=== PATIENT | male | born 1950 | race Caucasian/White ===

== ENCOUNTER 2018-10-08 08:00 | Day surgery (SDC) | payer OTHER ==
[~2018-10-08] VITALS: Ht 177.8 cm; Wt 127.0 kg
[~2018-10-08 08:00] MED LIST: AMBIEN CR12.5 MG PO; AMITRIPTYLINE H10 MG PO; AMLODIPINE BESY10 MG PO; ASCORBIC ACID500 M3 PO; ASPIRIN EC81 MG PO; AZITHROMYCIN250 MG PO; B-12500 MCG PO; BUPROPION XL150 MG PO; BUSPIRONE HCL10 MG PO; COMBIVENT RESPIM4 GM INH; CYCLOBENZAPRINE10 MG PO; GABAPENTIN300 MG PO; GLUCOSAMINE HC500 MG PO; LISINOPRIL40 MG PO; MEDROL4 M1 PO; METOPROLOL TART50 MG PO; MULTI VITAMIN1 EACH PO; NAPROXEN500 MG PO; NORCO 5-325 TA1 EACH PO; OMEPRAZOLE20 MG PO; PREDNISONE20 MG PO; TERAZOSIN HCL10 MG PO; TRAZODONE HCL150 MG PO; VENTOLIN HFA18 GM IH; VIAGRA100 MG PO; VITAMIN D1000 UNI1 PO; VITAMIN E400 UNI6 PO; ZITHROMAX250 MG PO; [UNRECOGNIZED DRUG - CODE] DT
--- NOTE | 2018-10-08 10:30 | NUR ---
10[facility]08/18 [facility]30 [facility] NON RESPONSIVE TO VERBAL/TACTILE STIMULI. ORAL AND NASAL AIRWAY IN MOUTH. JAW THRUST HELD BY RN TO KEEP AIRWAY OPEN. PT WITH JUICY SECRETIONS AND ORALLY SUCTIONED. 0957 PT AWAKENS. ORAL AND NASAL AIRWAY REMOVED. PT COUGHING AND SUCTIONED BY RN. AUDIBLE WHEEZES NOTED. BILAT UPPER AND LOWER LOBES HAVE EXPIRATORY WHEEZES. NEW ORDERS RECEIVED. 0959 ALBUTEROL UNIT DOSE NEB GIVEN. 1005 OXYGEN REMOVED. ENCOURAGED TO COUGH AND DEEP BREATH. PASSING FLATUS. 1020 SITTING UP IN BED TAKING SIPS OF WATER.
--- NOTE | 2018-10-09 08:24 | OR ---
[facility] [address], [place] [address] Signed DATE OF OPERATION: 10/08/2018 SURGEON: Geo Castrejon MD PREOPERATIVE DIAGNOSES: 1. Change in bowel habits with loose stool and diarrhea. 2. Possible history of colonic polyps in his 50s. POSTOPERATIVE DIAGNOSES: 1. Moderate pandiverticulosis. 2. Possible melanosis coli. PROCEDURE PERFORMED: Colonoscopy with cold biopsies in the mid to distal sigmoid colon x2 and at 10 cm in the rectum. ESTIMATED BLOOD LOSS: None. INDICATIONS: Shimon is a 68-year-old gentleman who was asked to see us for a colonoscopy. He has had a change in bowel habits with frequent loose stool and diarrhea. He has been through stool studies and labs, and according to him, they were all negative. He gives no family history of colon cancer or polyps. He is pretty certain that he had colonic polyps back in his 50s. He told me that was his last colonoscopy. In the office, I gave him a pamphlet on colonoscopy. We looked at that together along with the risks including, but not limited to gas bloating, crampy abdominal pain, bleeding, perforation, requiring surgery, and missed diagnosis. In addition, he has significant medical issues and he is heavy with a full face and very thick neck. Consequently, we asked an anesthesia provider to help us with increased monitoring of sedation with propofol. That indeed proved to be a blair decision. Although he takes 4 antihypertensive drugs, he came in with systolic blood pressures up into the 230 range. Consequently, the anesthesia provider gave him some Lopressor during the procedure and brought his blood pressures down to the 180s. He may want review his blood pressure medications and compliance with his primary care provider. PROCEDURE NOTE: Shimon was taken into our endoscopy suite and placed in the left lateral decubitus position. He was given IV sedation with propofol per our nurse avian keeper. Again, his systolic blood pressures were running up in the 230 range. He told us on admission that Electronically Signed By: GEO CASTREJON MD 10/09/18 0824 PATIENT NAME: SHIMON QUIROS OPERATIVE REPORT DATE OF : 48 REPORT #: [id number] PHYSICIAN: GEO CASTREJON MD PCP: RUTHANN COYLE MD REPORT IS CONFIDENTIAL AND NOT TO BE RELEASED WITHOUT AUTHORIZATION [facility] [address] [place], [place] [address] Signed he had taken all his blood pressure pills yesterday evening and this morning. Our anesthesia provider gave him some Lopressor IV and it brought his systolic blood pressures down into the 180s. A digital rectal exam was performed and this was unremarkable. The adult colonoscope was introduced and advanced all around into the cecum under direct visualization of camera without difficulty. Fortunately, he is quite easy to scope. His prep was good. The ileocecal valve and appendiceal orifice were E and Crohn's foot were easily visualized. The scope was slowly withdrawn. He has moderate pandiverticulosis. We saw no polyps throughout the entire colon. He does have some mild tiger striping in the colon and seemed to be more prominent in the rectum. We went ahead and took two cold biopsies of mid to distal sigmoid colon for pathologic review and then one at about 10 cm in the rectum for pathologic review. The scope had been retroflexed and he had very minimal internal hemorrhoid tissue. After this, the gas was suctioned out and colonoscope removed. Shimon tolerated the procedure quite well. RECOMMENDATIONS: I will see Shimon back in my office in 7 to 14 days to review his results. He might review his hypertension and his antihypertensive medications with his primary care provider based on the above. Geo Castrejon MD [facility]/MODL /[id number] cc: MD Geo Pool MD [facility] Copies: RUTHANN COYLE MD Electronically Signed By: GEO CASTREJON MD 10/09/18 0824 PATIENT NAME: SHIMON QUIROS OPERATIVE REPORT DATE OF : 48 REPORT #: [id number] PHYSICIAN: GEO CASTREJON MD PCP: RUTHANN COYLE MD REPORT IS CONFIDENTIAL AND NOT TO BE RELEASED WITHOUT AUTHORIZATION [address] [address] Signed GEO CASTREJON MD ~ Electronically Signed By: GEO CASTREJON MD 10/09/18 0824 PATIENT NAME: HSIMON QUIROS OPERATIVE REPORT DATE OF : 48 REPORT #: [id number] PHYSICIAN: GEO CASTREJON MD PCP: RUTHANN COYLE MD REPORT IS CONFIDENTIAL AND NOT TO BE RELEASED WITHOUT AUTHORIZATION
== END 2018-10-08 10:50 | disposition home or self-care (01) ==
LOC: DS 08:00 → OPS 08:00
PROVIDERS: Colon & Rectal Surgery
PROC: 0DBP8ZX Excision of Rectum, Via Natural or Artificial Opening Endoscopic, Diagnostic (ICD-10-PCS; 2018-10-08)
PROC: 0DBE8ZX Excision of Large Intestine, Via Natural or Artificial Opening Endoscopic, Diagnostic (ICD-10-PCS; principal; 2018-10-08 09:00)
DX: K52.9 Noninfective gastroenteritis and colitis, unspecified (principal); K57.30 Diverticulosis of large intestine without perforation or abscess without bleeding; K62.89 Other specified diseases of anus and rectum; I10 Essential (primary) hypertension; J44.9 Chronic obstructive pulmonary disease, unspecified; E66.9 Obesity, unspecified; K74.60 Unspecified cirrhosis of liver; E66.01 Morbid (severe) obesity due to excess calories; F41.9 Anxiety disorder, unspecified; K21.9 Gastro-esophageal reflux disease without esophagitis; G47.33 Obstructive sleep apnea (adult) (pediatric); F12.90 Cannabis use, unspecified, uncomplicated; Z88.8 Allergy status to other drugs, medicaments and biological substances; Z68.39 Body mass index [BMI] 39.0-39.9, adult; Z79.82 Long term (current) use of aspirin; Z79.899 Other long term (current) drug therapy; Z87.891 Personal history of nicotine dependence
CPT/HCPCS: J2250; J2704; J7120

== ENCOUNTER 2018-10-20 12:06 | Emergency (ER) | payer OTHER ==
[~2018-10-20] VITALS: Ht 177.8 cm; Wt 127.0 kg
--- OUTSIDE RECORDS SUMMARY | ~2018-10-20 | XMS | Clinical Summary ---
Demographics + + + | Address | [address] | | | [place] [address] | + + + | Home Phone | | + + + | Preferred Language | Unknown | + + + | Marital Status | | + + + | Rastafari Affiliation | 1069 | + + + | Race | Unknown | + + + | Ethnic Group | Unknown | + + + Author + + + | Author | [facility] | | | and Zhengana | + + + | Organization | [facility] | | | and [place] | + + + | Address | Unknown | + + + | Phone | Unavailable | + + + Support + + +---------+ + | Name | Relationship | Address | Phone | + + +---------+ + | Ladan Gtz | ECON | Unknown | | + + +---------+ + Care Team Providers + +------+ + | Care Line Ordering Clinician Name | Role | Phone | + +------+ + | Steve Hodge MD | PP | | + +------+ + Allergies + + + + + + | Active Allergy | Reactions | Severity | Noted | Comments | | | | | Date | | + + + + + + | Niacin And Related | Other (See Comments) | | 08/16/19 | Reaction not | | | | | 18 | specified in outside | | | | | | medical records | + + + + + + Medications + + + +---------+------+------+-------+ | Medication | Sig | Dispensed | Refills | Star | End | Statu | | | | | | t | Date | s | | | | | | Date | | | + + + +---------+------+------+-------+ | | Inhale 1 puff into | | 0 | | | Activ | | albuterol-ipratropiu | the lungs every 6 | | | | | e | | m (COMBIVENT | hours as needed for | | | | | | | RESPIMAT) 100-20 | Shortness of Breath. | | | | | | | mcg/puff inhaler | | | | | | | + + + +---------+------+------+-------+ | | Take 1 tablet by | | 0 | | | Activ | | HYDROcodone-acetamin | mouth Twice daily | | | | | e | | ophen (NORCO) 5-325 | as needed for Pain. | | | | | | | mg per tablet | | | | | | | + + + +---------+------+------+-------+ | amoxicillin | Take 500 mg by mouth | | 0 | | | Activ | | (AMOXIL) 500 MG | 3 times daily. | | | | | e | | capsule | | | | | | | + + + +---------+------+------+-------+ | ibuprofen | Take 600 mg by mouth | | 0 | | | Activ | | (ADVIL,MOTRIN) 600 | every 6 hours as | | | | | e | | MG tablet | needed for Pain. | | | | | | + + + +---------+------+------+-------+ | gabapentin | Take 300 mg by mouth | | 0 | | | Activ | | (NEURONTIN) 300 mg | nightly. | | | | | e | | capsule | | | | | | | + + + +---------+------+------+-------+ | valsartan (DIOVAN) | Take 320 mg by mouth | | 0 | | | Activ | | 320 MG tablet | Daily. | | | | | e | + + + +---------+------+------+-------+ | cloNIDine | Take 0.1 mg by mouth | | 0 | | | Activ | | (CATAPRES) 0.1 mg | 3 times daily. | | | | | e | | tablet | | | | | | | + + + +---------+------+------+-------+ | latanoprost | Place 1 drop into | | 0 | | | Activ | | (XALATAN) 0.005% | both eyes nightly. | | | | | e | | ophthalmic solution | | | | | | | + + + +---------+------+------+-------+ | metoprolol | Take 25 mg by mouth | | 0 | | | Activ | | tartrate (LOPRESSOR) | nightly. | | | | | e | | 50 mg tablet | | | | | | | + + + +---------+------+------+-------+ | | Take 25 mg by mouth | | 0 | | | Activ | | hydroCHLOROthiazide | Daily. | | | | | e | | 25 mg tablet | | | | | | | + + + +---------+------+------+-------+ | omeprazole | Take 20 mg by mouth | | 0 | | | Activ | | (PRILOSEC) 20 mg | every morning | | | | | e | | capsule | (before breakfast). | | | | | | + + + +---------+------+------+-------+ | cyclobenzaprine | Take 10 mg by mouth | | 0 | | | Activ | | (FLEXERIL) 10 mg | Twice daily as | | | | | e | | tablet | needed for Muscle | | | | | | | | spasms. Do not take | | | | | | | | with Clonazepam | | | | | | + + + +---------+------+------+-------+ | amLODIPine | Take 10 mg by mouth | | 0 | | | Activ | | (NORVASC) 10 MG | Daily. | | | | | e | | tablet | | | | | | | + + + +---------+------+------+-------+ | amitriptyline | Take 300 mg by mouth | | 0 | | | Activ | | (ELAVIL) 150 MG | nightly. | | | | | e | | tablet | | | | | | | + + + +---------+------+------+-------+ | sildenafil | Take 100 mg by mouth | | 0 | | | Activ | | (VIAGRA) 100 MG | as needed for | | | | | e | | tablet | Erectile | | | | | | | | Dysfunction. | | | | | | + + + +---------+------+------+-------+ | naloxone (NARCAN) | 4 mg by Nasal route | | 0 | | | Activ | | 4 mg/nasal spray | as needed | | | | | e | | | (Accidental Opioid | | | | | | | | Overdose). May | | | | | | | | repeat in other | | | | | | | | nostril in 3-5 | | | | | | | | minutes if needed, | | | | | | | | Call 911 | | | | | | + + + +---------+------+------+-------+ | artificial tears | Place 1 drop into | | 0 | | | Activ | | (REFRESH TEARS) | both eyes every 6 | | | | | e | | ophthalmic solution | hours as needed for | | | | | | | | Dry Eyes. | | | | | | + + + +---------+------+------+-------+ | busPIRone (BUSPAR) | Take 10 mg by mouth | | 0 | | | Activ | | 10 MG tablet | 2 times daily. | | | | | e | + + + +---------+------+------+-------+ | traZODone | Take 300 mg by mouth | | 0 | | | Activ | | (DESYREL) 150 MG | nightly. | | | | | e | | tablet | | | | | | | + + + +---------+------+------+-------+ | amitriptyline | Take 40 mg by mouth | | 0 | | | Activ | | (ELAVIL) 10 mg | nightly. | | | | | e | | tablet | | | | | | | + + + +---------+------+------+-------+ | SODIUM FLUORIDE, | Place 1 Application | | 0 | | | Activ | | DENTAL GEL, 1.1 % | onto teeth 2 times | | | | | e | | CREA | daily. | | | | | | + + + +---------+------+------+-------+ | aspirin 81 mg EC | Take 81 mg by mouth | | 0 | | | Activ | | tablet | Daily. | | | | | e | + + + +---------+------+------+-------+ | naproxen | Take 500 mg by mouth | | 0 | | | Activ | | (NAPROSYN) 500 mg | 2 times daily (with | | | | | e | | tablet | breakfast & | | | | | | | | dinner). | | | | | | + + + +---------+------+------+-------+ | cholecalciferol | Take 1,000 Units by | | 0 | | | Activ | | (VITAMIN D-3) 1000 | mouth Daily. | | | | | e | | units TABS | | | | | | | + + + +---------+------+------+-------+ | cyanocobalamin | Take 500 mcg by | | 0 | | | Activ | | (VITAMIN B-12) 500 | mouth Daily. | | | | | e | | mcg tablet | | | | | | | + + + +---------+------+------+-------+ | Multiple Vitamin | Take by mouth | | 0 | | | Activ | | (THERAGRAN PO) | Daily. | | | | | e | + + + +---------+------+------+-------+ | Glucosamine HCl | Take by mouth | | 0 | | | Activ | | (GLUCOSAMINE PO) | Daily. | | | | | e | + + + +---------+------+------+-------+ Active Problems Not on file Social History + + + +--------+ + | Tobacco Use | Types | Packs/Day | Years | Date | | | | | Used | | + + + +--------+ + | Former Smoker | Cigarettes | 2 | 15 | Started: 08/21/1997 | + + + +--------+ + + +---+---+---+ | Smokeless Tobacco: | | | | | Never Used | | | | + +---+---+---+ + + +---------+ + | Alcohol Use | Drinks/We | oz/Week | Comments | | | ek | | | + + +---------+ + | Yes | | | Social | + + +---------+ + + + + | Sex Assigned at | Date Recorded | | | | + + + | Not on file | | + + + + + + + | Job Start Date | Occupation | Industry | + + + + | Not on file | Not on file | Not on file | + + + + + + + + | Travel History | Travel Start | Travel End | + + + + + + | No recent travel history available. | + + Last Filed Vital Signs + + + + | Vital Sign | Reading | Time Taken | + + + + | Blood Pressure | 148/84 | 08/22/20171241 PDT | + + + + | Pulse | 60 | 08/22/20171241 PDT | + + + + | Temperature | - | - | + + + + | Respiratory Rate | - | - | + + + + | Oxygen Saturation | - | - | + + + + | Inhaled Oxygen | - | - | | Concentration | | | + + + + | Weight | 128 kg (282 lb 3 oz) | 08/22/20171241 PDT | + + + + | Height | 177.8 cm (5' 10") | 08/22/20171241 PDT | + + + + | Body Mass Index | 40.49 | 08/22/20171241 PDT | + + + + Plan of Treatment + + + + + | Health Maintenance | Due Date | Last Done | Comments | + + + + + | Hepatitis C | | | | | Screening | 9 | | | + + + + + | Vaccine: | | | | | Dtap/Tdap/Td (1 - | 8 | | | | Tdap) | | | | + + + + + | Colorectal Cancer | | | | | Screening | 9 | | | | (Colonoscopy) | | | | + + + + + | Vaccine: Zoster (1 | | | | | of 2) | 9 | | | + + + + + | Vaccine: | | | | | Pneumococcal 65+ | 4 | | | | Low/Medium Risk (1 | | | | | of 2 - PCV13) | | | | + + + + + | Adult Annual | | | | | Wellness Visit | 5 | | | + + + + + | Vaccine: Influenza | | | | | (Season Ended) | 9 | | | + + + + + | AAA Screening | Completed | 11/03/2014 | | + + + + + Results Not on filefrom Last 3 Months Insurance + +--------+ +--------+-------+---------+--------+ | Payer | Benefi | Subscriber | Effect | Phone | Address | Type | | | t Plan | ID | nieves | | | | | | / | | Dates | | | | | | Group | | | | | | + +--------+ +--------+-------+---------+--------+ | [employer]ER[employer] ADMIN | VETERA | [id number] | | | | Indemn | | | [place] | | 018-Pr | | | ity | | | CHOICE | | esent | | | | + +--------+ +--------+-------+---------+--------+ + +--------+ +--------+ + + | Guarantor Name | Accoun | Relation to | Date | Phone | Billing Address | | | t Type | Patient | of | | | | | | | | | | + +--------+ +--------+ + + | Shimon Gtz | Person | Self | [birth year] | [address] | | Baljinder | nilda/Phill | | 1950 | [phone] | [place] [address] | | | marylou | | | 3 (Home) | | + +--------+ +--------+ + + Advance Directives Patient has advance care planning documents on file. For more information, please contact:[facility] [place] [address]
--- OUTSIDE RECORDS SUMMARY | ~2018-10-20 | XMS | Clinical Summary ---
Demographics + + + | Address | [address] | | | [place] [address] | + + + | Home Phone | | + + + | Preferred Language | Unknown | + + + | Marital Status | Unknown | + + + | Synagogue Affiliation | Unknown | + + + | Race | Unknown | + + + | Ethnic Group | Unknown | + + + Author + + + | Author | [facility] | + + + | Organization | [facility] | + + + | Address | Unknown | + + + | Phone | Unavailable | + + + Support + + + + + | Name | Relationship | Address | Phone | + + + + + | Charline Kirby | ECON | [address] | | | | | [place] [address] | | + + + + + | Apryl Quiros | ECON | Unknown | | + + + + + Care Team Providers + +------+ + | Care Molding Line Assistant Name | Role | Phone | + +------+ + | Les Yanez MD | PP | | + +------+ + Allergies Not on File Current Medications Not on file Active Problems Not on file Social History + +-------+ +--------+------+ | Tobacco Use | Types | Packs/Day | Years | Date | | | | | Used | | + +-------+ +--------+------+ | Never Assessed | | | | | + +-------+ +--------+------+ + + + | Sex Assigned at | Date Recorded | | | | + + + | Not on file | | + + + Plan of Treatment + [...] filefrom Last 3 Months Insurance + +--------+ +------+ + + | Payer | Benefi | Subscriber | Type | Phone | Address | | | t Plan | ID | | | | | | / | | | | | | | Group | | | | | + +--------+ +------+ + + | MEDICARE | MEDICA | [id number] | | | [address] | | | RE | | | | [place] [address] | | | IP-OP | | | | | + +--------+ +------+ + + | VETERANS | VETERA | [id number] | | [phone] [employer]EE SERVICES [id number] | | ADMINISTRATION | [place] | | | [phone] | | | [address] | | | | [address] | | | [place] | | | | [phone] | | | ON | | | | | | | GENERI | | | | | | | C | | | | | + +--------+ +------+ + + + +--------+ +--------+ + + | Guarantor Name | Accoun | Relation to | Date | Phone | Billing Address | | | t Type | Patient | of | | | | | | | | | | + +--------+ +--------+ + + | SHIMON QUIROS | Person | Self | [birth year] | Home: | [address] | | | al/Fam | | 9 | +- | [place] [address] | | | marylou | | | [phone] | | + +--------+ +--------+ + + | SHIMON QUIROS | Vetera | Self | [birth year] | Home: | [address] | | | ns | | 1950 | +- | [place] [address] | | | Admini | | | [address] | | | | shima | | | | | | | on | | | | | + +--------+ +--------+ + +"
--- OUTSIDE RECORDS SUMMARY | ~2018-10-20 | XMS | Clinical Summary ---
Demographics + + + | Address | [address] | | | [place] [address] | + + + | Home Phone | | + + + | Preferred Language | Unknown | + + + | Marital Status | | + + + | Sikhism Affiliation | 1069 | + + + | Race | Unknown | + + + | Ethnic Group | Unknown | + + + Author + + + | Author | [facility] | | | and Zhengana | + + + | Organization | [facility] | | | and [place]a | [...] Team Providers + +------+ + | Care Electro Mechanical Engineer Name | Role | Phone | + [...] +--------+-------+---------+--------+ | [employer]ETER[employer] ADMIN | VETERA | [id number] | | | | Indemn | | [...] | 1950 | [phone] | [place] [address] | | | marylou | | | 3 (Home) | | + +--------+ +--------+ + + Advance Directives Patient has advance care planning documents on file. For more information, please contact:[facility] [place] [address]
--- OUTSIDE RECORDS SUMMARY | ~2018-10-20 | XMS | Clinical Summary ---
Demographics + + + | Address | [address] | | | [place] [address] | + + + | Home Phone | | + + + | Preferred Language | Unknown | + + + | Marital Status | Unknown | + + + | Buddhist Affiliation | Unknown | + + + | Race | Unknown | + + + | Ethnic Group | Unknown | + + + Author + + + | Author | [facility] | + + + | Organization | [facility] | + + + | Address | Unknown | + + + | Phone | Unavailable | + + + Support + + + + + | Name | Relationship | Address | Phone | + + + + + | Charline Kirby | ECON | [address] | | | | | [place] [address] | | + + + + + | Apryl Quiros | ECON | Unknown | | + + + + + Care Team Providers + +------+ + | Care Dentistry Professor Name | Role | Phone | + [...] + + | MEDICARE | MEDICA | [id number] | | | [address] | | | RE | | | | [place] [address] | | | IP-OP | | | | | + +--------+ +------+ + + | VETERANS | VETERA | [id number] | | [phone] | FEE SERVICES [address] | | ADMINISTRATION | [place] | | | [phone] | [phone] | | | ADMINI | | | | [address] | | | [place] | | | | [phone] | | | ON | | | [...] | 9 | +- | [place] [address] | | | [place] | | | [address] | | + +--------+ +--------+ + + | SHIMON QUIROS | Vetera | Self | [birth year] | Home: | [address] | | | ns | | 1950 | +- | [place] [address] | | | Admini | | | [address] | | | | shima | | | | | | | on | | | | | + +--------+ +--------+ + +"
[2018-10-20] MEDS ORDERED: DOXYCYCLINE HY100 MG PO (14:23)
[2018-10-20] MEDS ORDERED: PREDNISONE20 MG PO (14:23)
== END 2018-10-20 14:34 | disposition home or self-care (01) ==
LOC: ED 12:06
DX: J44.1 Chronic obstructive pulmonary disease with (acute) exacerbation (principal); I10 Essential (primary) hypertension; Z85.46 Personal history of malignant neoplasm of prostate; Z87.891 Personal history of nicotine dependence; Z88.1 Allergy status to other antibiotic agents; Z79.82 Long term (current) use of aspirin; Z79.899 Other long term (current) drug therapy
CPT/HCPCS: 71046; 80053; 83735; 84484; 85025; 94640; 96374; 99283-25; J2930

== ENCOUNTER 2020-03-07 08:37 | Inpatient (IN) | payer MEDICARE, OTHER | END 2020-03-11 13:30 | disposition home or self-care (01) | DRG 177 | LOC: ED 08:37 → CCU 12:35 → MS 03-08 14:59 | PROVIDERS: ADMIT Student in an Organized Health Care Education/Training Program | DX: J15.6 Pneumonia due to other Gram-negative bacteria (principal); J96.01 Acute respiratory failure with hypoxia; J44.1 Chronic obstructive pulmonary disease with (acute) exacerbation; J44.0 Chronic obstructive pulmonary disease with (acute) lower respiratory infection; Z20.828 Contact with and (suspected) exposure to other viral communicable diseases; B19.20 Unspecified viral hepatitis C without hepatic coma; I10 Essential (primary) hypertension; M54.9 Dorsalgia, unspecified; G89.29 Other chronic pain; K21.9 Gastro-esophageal reflux disease without esophagitis; F39 Unspecified mood [affective] disorder; Z85.46 Personal history of malignant neoplasm of prostate; Z87.891 Personal history of nicotine dependence; Z88.8 Allergy status to other drugs, medicaments and biological substances; Z79.1 Long term (current) use of non-steroidal anti-inflammatories (NSAID); Z79.82 Long term (current) use of aspirin; Z79.891 Long term (current) use of opiate analgesic; Z79.899 Other long term (current) drug therapy ==

== ENCOUNTER 2021-01-05 17:46 | Emergency (ER) | payer OTHER ==
[~2021-01-05] VITALS: Ht 177.8 cm; Wt 111.1 kg
[~2021-01-05 17:46] MED LIST changes: +ALBUTEROL2.5 MG/3 M INH; +BIOTENE ORALBAL42 G1 MM; +CATAPRES0.1 MG PO; +COZAAR100 MG PO; +CVS PAIN RELIE TOP; +DENTA 5000 PLUS51 GM MM; +DOXYCYCLINE HY100 MG PO; +DRY MOUTH45 ML MM; +GLUCOSAMINE1000 MG PO; +HYDROCHLOROTHIA25 MG PO; +HYDROCODON-ACE1 EA10 PO; +LATANOPROST 0.7.5 ML OU; +LEVOFLOXACIN750 MG PO; +MELATONIN5 M2 PO; +NEURONTIN300 MG PO; +STIOLTO RESPIMAT4 GM INH; +THEREMS-M1 EACH PO; +VITAMIN B-121000 MCG PO; +VITAMIN C1500 MG PO; +VITAMIN D350 MC3 PO; +VITAMIN E100 UNI1 PO; -[UNRECOGNIZED DRUG - CODE] DT
--- NOTE | 2021-01-10 07:09 | EKG ---
[facility] [address] [facility] [place] [address] Signed Sinus tachycardia with premature supraventricular complexes and with occasional premature ventricular complexes Otherwise normal ECG Confirmed by GET AYERS MD ([id number]) on 01/10/2021 7:09:33 AM Electronically Signed By: GET AYERS MD 01/10/2109 PATIENT NAME: VIVIANE QUIROS Electrocardiogram DATE OF : 48 PHYSICIAN: GET AYERS MD REPORT #: [id number] REPORT IS CONFIDENTIAL AND NOT TO BE RELEASED WITHOUT AUTHORIZATION
== END 2021-01-05 21:00 | disposition home or self-care (01) ==
LOC: ED 17:46
DX: J44.1 Chronic obstructive pulmonary disease with (acute) exacerbation (principal); I10 Essential (primary) hypertension; Z85.46 Personal history of malignant neoplasm of prostate; Z87.891 Personal history of nicotine dependence; Z88.1 Allergy status to other antibiotic agents; Z20.822 Contact with and (suspected) exposure to COVID-19; Z79.899 Other long term (current) drug therapy; Z79.52 Long term (current) use of systemic steroids; Z79.82 Long term (current) use of aspirin
CPT/HCPCS: 71045; 80053; 83605; 84484; 85025; 87040; 94640; 96374; 99285-25; J1100; U0003

== ENCOUNTER 2021-11-28 13:11 | Emergency (ER) | payer OTHER ==
[~2021-11-28] VITALS: Ht 177.8 cm; Wt 95.2 kg
== END 2021-11-28 14:24 | disposition home or self-care (01) ==
LOC: ED 13:11
DX: S80.12XA Contusion of left lower leg, initial encounter (principal); W06.XXXA Fall from bed, initial encounter; I10 Essential (primary) hypertension; Z87.891 Personal history of nicotine dependence; Z88.1 Allergy status to other antibiotic agents; Z79.899 Other long term (current) drug therapy
CPT/HCPCS: 99283

== ENCOUNTER 2022-03-27 14:14 | Emergency (ER) | payer OTHER ==
[~2022-03-27] VITALS: Ht 177.8 cm; Wt 95.2 kg
--- NOTE | 2022-03-27 16:50 | EKG ---
[facility] [address] [facility] [place] [address] Signed Sinus bradycardia T wave abnormality, consider lateral ischemia Abnormal ECG When compared with ECG of 05-JAN-2021 18:37, premature ventricular complexes are no longer present premature supraventricular complexes are no longer present Vent. rate has decreased BY 56 BPM T wave inversion now evident in Lateral leads Confirmed by MANUEL LOPEZ MD ([id number]) on 03/27/2022 4:50:12 PM Electronically Signed By: MANUEL LOPEZ MD 03/27/22 1650 PATIENT NAME: VIVIANE QUIROS Electrocardiogram DATE OF : [birth year] PHYSICIAN: MANUEL LOPEZ MD REPORT #: [id number] REPORT IS CONFIDENTIAL AND NOT TO BE RELEASED WITHOUT AUTHORIZATION
[2022-03-27] MEDS ORDERED: K-TAB ER20 MEQ PO (16:54)
[2022-03-27] MEDS ORDERED: LASIX40 MG PO (16:54)
== END 2022-03-27 17:01 | disposition home or self-care (01) ==
LOC: ED 14:14
DX: I11.0 Hypertensive heart disease with heart failure (principal); I50.9 Heart failure, unspecified; J44.9 Chronic obstructive pulmonary disease, unspecified; Z99.81 Dependence on supplemental oxygen; Z87.891 Personal history of nicotine dependence; Z88.8 Allergy status to other drugs, medicaments and biological substances; Z79.899 Other long term (current) drug therapy; Z20.822 Contact with and (suspected) exposure to COVID-19
CPT/HCPCS: 36415; 71045; 80053; 83735; 83880; 84484; 85025; 86922; 87502; 93005; 93010; C9803; J1940; U0003

== ENCOUNTER 2022-04-17 13:56 | Emergency (ER) | payer OTHER ==
[~2022-04-17] VITALS: Ht 177.8 cm; Wt 95.2 kg
[~2022-04-17 13:56] MED LIST changes: +K-TAB ER20 MEQ PO; +LASIX40 MG PO
--- OUTSIDE RECORDS SUMMARY | 2022-04-17 14:04 | XMS ---
PreManage Notification: VIVIANE QUIROS Security Cooperative Education Director Events No recent Security Events currently on file CRITERIA MET - [facility] - 2 Visits in 30 Days CARE PROVIDERS TIFFANIE Rosen Pricing Specialist: Clinical 03/21/2020-Current [facility] \F\ [facility] PHONE: [phone] [facility] \F\ [facility] 03/21/2020-Current [facility] Pharmacy PHARMACY PHONE: [phone] Alan has no Care Guidelines for this patient. Care History Medical/Surgical 03/21/2020 [facility] \T\middot;\T\nbsp; PATIENT IS A -RECEIVES SERVICES THROUGH [facility] IN [place]. \T\middot;\T\nbsp; Location: [address], [place] [address]- E.D. VISIT COUNT (12 MO.) [address] [facility] TOTAL 3 NOTE: Visits indicate total known visits. ED/UCC VISIT TRACKING (12 MO.) 04/17/2022 13:57 [facility] TYPE: Emergency COMPLAINT: - CHEST PAIN 03/27/2022 14:15 [facility] [place] TYPE: Emergency COMPLAINT: - DIZZY SPELLS DIAGNOSES: - Other roasterman (current) drug therapy - Contact with and (suspected) exposure to COVID-19 - Chronic obstructive pulmonary disease, unspecified - Dizziness and giddiness - Heart failure, unspecified - Hypertensive heart disease with heart failure - Allergy status to other drugs, medicaments and biological substances - Personal history of nicotine dependence - Dependence on supplemental oxygen 11/28/2021 13:12 [facility] [place] TYPE: Emergency COMPLAINT: - SHOULDERS PAIN, L CALF SWOLLEN/PAIN DIAGNOSES: - Pain in left lower leg - Other roasterman (current) drug therapy - Contusion of left lower leg, initial encounter - Personal history of nicotine dependence - Essential (primary) hypertension - Fall from bed, initial encounter - Allergy status to other antibiotic agents INPATIENT VISIT TRACKING (12 MO.) No inpatient visits to display in this time frame [email or web address]
[2022-04-17] MEDS ORDERED: FUROSEMIDE40 MG PO (14:10)
[2022-04-17] MEDS ORDERED: POTASSIUM CHLO20 ME2 PO (14:10)
--- NOTE | 2022-04-17 22:20 | EKG ---
[facility] [address] [facility] [place] [address] Signed Sinus rhythm with blocked premature atrial complexes Possible Left atrial enlargement Borderline ECG When compared with ECG of 27-MAR-2022 14:18, premature atrial complexes are now present Confirmed by Aaliyah Mcdaniel MD () on 04/17/2022 10:19:58 PM Electronically Signed By: AALIYAH MCDANIEL MD 04/17/222219 PATIENT NAME: VIVIANE QUIROS ELADIA Electrocardiogram DATE OF : [birth year] PHYSICIAN: AALIYAH MCDANIEL MD REPORT #: [id number] REPORT IS CONFIDENTIAL AND NOT TO BE RELEASED WITHOUT AUTHORIZATION
== END 2022-04-17 18:32 | disposition home or self-care (01) ==
LOC: ED 13:56
DX: R00.2 Palpitations (principal); R07.89 Other chest pain; I11.0 Hypertensive heart disease with heart failure; I50.9 Heart failure, unspecified; J44.9 Chronic obstructive pulmonary disease, unspecified; Z87.891 Personal history of nicotine dependence; Z88.8 Allergy status to other drugs, medicaments and biological substances; Z79.899 Other long term (current) drug therapy
CPT/HCPCS: 36415; 71045; 80053; 83735; 83880; 84484; 85025; 93005; 93010; 99285-25; A9270

== ENCOUNTER 2022-05-30 10:31 | Emergency (ER) | payer OTHER ==
[~2022-05-30] VITALS: Ht 177.8 cm; Wt 95.2 kg
[~2022-05-30 10:31] MED LIST changes: +FUROSEMIDE40 MG PO; +POTASSIUM CHLO20 ME2 PO
[2022-05-30] MEDS ORDERED: LIDODERM1 EACH TOP (14:53)
[2022-05-30] MEDS ORDERED: NAPROSYN500 MG PO (14:56)
--- NOTE | 2022-06-01 22:01 | EKG ---
[facility] [address] [place] [address] Signed Sinus rhythm, with PACs Otherwise normal ECG When compared with ECG of 17-APR-2022 13:55, Similar appearance Confirmed by Aaliyah Mcdaniel MD () on 06/01/2022 10:01:38 PM Electronically Signed By: AALIYAH MCDANIEL MD 06/01/222200 PATIENT NAME: VIVIANE QUIROS ELADIA Electrocardiogram DATE OF : [birth year] PHYSICIAN: AALIYAH MCDANIEL MD REPORT #: [id number] REPORT IS CONFIDENTIAL AND NOT TO BE RELEASED WITHOUT AUTHORIZATION
== END 2022-05-30 15:50 | disposition home or self-care (01) ==
LOC: ED 10:31
DX: S22.42XA Multiple fractures of ribs, left side, initial encounter for closed fracture (principal); I11.0 Hypertensive heart disease with heart failure; I50.9 Heart failure, unspecified; J44.9 Chronic obstructive pulmonary disease, unspecified; Z87.891 Personal history of nicotine dependence; Z88.1 Allergy status to other antibiotic agents; Z79.899 Other long term (current) drug therapy; W19.XXXA Unspecified fall, initial encounter
CPT/HCPCS: 36415; 71101; 73030; 80053; 81003; 84484; 85025; 93005; 93010; 99284-25; J7040

== ENCOUNTER 2023-07-08 09:47 | Emergency (ER) | payer OTHER ==
[~2023-07-08] VITALS: Ht 177.8 cm; Wt 95.2 kg
[~2023-07-08 09:47] MED LIST changes: +LIDODERM1 EACH TOP; +NAPROSYN500 MG PO
[2023-07-08 12:20] VITALS: BP 208/94
== END 2023-07-08 12:21 | disposition home or self-care (01) ==
LOC: ED 09:47
DX: M48.56XA Collapsed vertebra, not elsewhere classified, lumbar region, initial encounter for fracture (principal); G89.29 Other chronic pain; I11.0 Hypertensive heart disease with heart failure; I50.9 Heart failure, unspecified; J44.9 Chronic obstructive pulmonary disease, unspecified; Z87.891 Personal history of nicotine dependence; Z88.8 Allergy status to other drugs, medicaments and biological substances; Z79.899 Other long term (current) drug therapy; Z79.51 Long term (current) use of inhaled steroids
CPT/HCPCS: 72131; 99283-25; A9270